=== PATIENT | male | born 1990 | race African-American/Black ===

== ENCOUNTER 2020-09-07 17:57 | Emergency (ER) | payer OTHER ==
[~2020-09-07] VITALS: Ht 182.9 cm; Wt 118.2 kg
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
[2020-09-07 22:05] VITALS: BP 164/96
== END 2020-09-07 22:10 | disposition home or self-care (01) ==
LOC: M ED 17:57
DX: S00.411A Abrasion of right ear, initial encounter (principal); S16.1XXA Strain of muscle, fascia and tendon at neck level, initial encounter; V49.49XA Driver injured in collision with other motor vehicles in traffic accident, initial encounter; Y92.410 Unspecified street and highway as the place of occurrence of the external cause; R51.9 Headache, unspecified; F17.210 Nicotine dependence, cigarettes, uncomplicated